=== PATIENT | male | born 1935 | race Caucasian/White ===

== ENCOUNTER → 2019-02-13 | Outpatient (CLI) | payer OTHER | LOC: ULTRA 10:47 | DX: R60.9 Edema, unspecified (principal); M79.605 Pain in left leg ==

== ENCOUNTER → 2019-12-03 | Outpatient (CLI) | payer OTHER | LOC: SJCVC 14:21 | PROVIDERS: ATTEND Internal Medicine Cardiovascular Disease | DX: I45.4 Nonspecific intraventricular block (principal); R94.31 Abnormal electrocardiogram [ECG] [EKG]; I25.119 Atherosclerotic heart disease of native coronary artery with unspecified angina pectoris; I48.92 Unspecified atrial flutter; I10 Essential (primary) hypertension; K21.9 Gastro-esophageal reflux disease without esophagitis; E78.00 Pure hypercholesterolemia, unspecified; Z82.49 Family history of ischemic heart disease and other diseases of the circulatory system; Z79.899 Other long term (current) drug therapy; Z87.891 Personal history of nicotine dependence ==

== ENCOUNTER → 2020-01-11 | Outpatient (CLI) | payer OTHER ==
[~2020-01-11] MED LIST: ALEVE220 MG PO; AMIODARONE HCL400 MG PO; ATIVAN1 M1 PO; CALCIUM CARBON500 MG PO; CLARITIN10 MG PO; ELIQUIS5 MG PO; FLOMAX0.4 MG PO; LIPITOR 40 MG T40 M1 PO; PRILOSEC OTC20 MG PO; REMERON15 M2 PO; SUPER THERAVIT1 EACH PO; VITAMIN D310 MC4 PO
== END ==
LOC: SJCVCIMAG 12:56
PROVIDERS: ATTEND Internal Medicine Cardiovascular Disease
DX: I44.7 Left bundle-branch block, unspecified (principal); I45.4 Nonspecific intraventricular block; R94.31 Abnormal electrocardiogram [ECG] [EKG]; I25.119 Atherosclerotic heart disease of native coronary artery with unspecified angina pectoris; I48.92 Unspecified atrial flutter; I10 Essential (primary) hypertension; R60.9 Edema, unspecified; J45.909 Unspecified asthma, uncomplicated; K21.9 Gastro-esophageal reflux disease without esophagitis; Z82.49 Family history of ischemic heart disease and other diseases of the circulatory system; Z79.899 Other long term (current) drug therapy; Z88.6 Allergy status to analgesic agent; Z87.891 Personal history of nicotine dependence

== ENCOUNTER → 2020-01-16 | Outpatient (CLI) | payer OTHER ==
[~2020-01-16] VITALS: Ht 175.3 cm; Wt 72.6 kg
[2020-01-16 09:00] VITALS: BP 131/74
[2020-01-16 09:11] LABS: HEMATOCRIT 38.9 % (42.0-52.0); HEMOGLOBIN 13.2 gm/dL (14.0-18.0); MCH 32.6 pg (26.0-34.0); MCV 95.6 fL (80.0-100.0); RBC 4.07 mil/uL (4.50-6.00); RDW 14.8 % (10.5-14.5); WBC 6.2 thou/uL (4.0-11.0)
[2020-01-16 09:21] LABS: CALCIUM 9.1 mg/dL (8.5-10.1); CREATININE 0.9 mg/dL (0.7-1.3); POTASSIUM 3.3 mmol/L (3.5-5.1)
--- NOTE | 2020-01-16 13:10 | CATHLAB ---
[facility] [place] [address] INVASIVE PROCEDURE REPORT Name: WILI RUIZ Room #: REG [facility].#: [id number] Admission: 01/16/20 Attend Phys: Ike Aleman MD Discharge: Date of : 35 Report #: [id number] THIS REPORT FOR: cc: Andre Schaeffer MD, Bernard O. MD Park, Jin S. MD ~ APPROVED REPORT Study performed: 01/16/2020 10:23:34 Patient Details Patient Status: Out-Patient Room #: The patient is a 84 year-old male Event Personnel Ike Aleman Human Resources Records Clerk, Samuel Desir RN RN, Sommer Hooks RTR, COOKIE MIXER HELPER Monitor, Maria Ines Boss Scrub, Radha Martinez RTR Scrub Procedures Performed Art Access - R femoral artery* Left Heart Cath w/or w/o Coronaries [id number] [facility] [id number] Initial Mod Sed Same Phys/QHP [facility] [id number] Mod Sed Same Phys/QHP Ea [id number] Hemostasis with Manual pressure Indication Positive stress test, Chest pain Risk Factors Hypercholesterolemia, Coronary Artery DiseaseHypertension Procedure Narrative The Right Groin^ was infiltrated with subcutaneous anesthesia. A PINNACLE 4FR Sheath #[id number] sheath was inserted into the RFA^. Coronary angiography was performed using coronary diagnostic catheters. The right coronary system was accessed and visualized with a JR4 catheter. The left coronary system was accessed and visualized with a JL4 catheter. The left ventricle was accessed and visualized with a JR4 catheter. Left ventricular/Aortic Valve gradient assessed via catheter pullback. Hemostasis was obtained with manual pressure following sheath removal without any complications. The patient tolerated the procedure well and there were no complications associated with the procedure. There was no hematoma. [facility] [address] [place] [address] INVASIVE PROCEDURE REPORT Name: RUIZWILI CHANG Room #: REG [facility]#: [id number] Admission: 01/16/20 Attend Phys: Ike Aleman MD Discharge: Date of : 35 Report #: [id number] Intraoperative Conscious Sedation Sedation start time: 10:45 Case end Time: 11:15 Fentanyl 100 mcg Versed 2 mg Fluoro Time: 1.40 minutes Dose: DAP 2453.40 cGycm2 343 mGy Contrast Type and Amount: Omnipaque 40 ml Coronary Angiography The patient's coronary anatomy is right dominant. Diagnostic Cath Left Main The left main artery is a large-caliber vessel, appears angiographically normal. LAD The LAD is a moderate-sized caliber vessel, traverses the anterior wall and terminates at the apex. There is a stent in the midsegment, patent with mild restenosis. Diagonal 1 This is a small caliber vessel, with no flow-limiting lesions. Diagonal 2 This is a small caliber vessel, with no flow-limiting lesions. Circumflex The left circumflex artery is a moderate-sized caliber vessel, patent with no flow-limiting lesions. OM1 This is a moderate-sized caliber vessel, patent with no flow-limiting lesions. OM2 This is a moderate-sized caliber vessel, patent with no flow-limiting lesions. Right Coronary The RCA is a dominant vessel with mild disease in the mid and distal segments, 30%. R PDA This is a small to moderate-sized caliber vessel, patent with no flow-limiting lesions. RPLV This is a small to moderate-sized caliber vessel, patent with no flow-limiting lesions. Left Ventriculography Left Ventriculography was not performed. Ejection Fraction was 60% based off patient's Nuclear Cardiac Stress Test. An LVEDP was measured and there is no gradient across the outflow tract. Hemodynamics The aortic pressure is 157/81 mmHg with a mean of 119 mmHg. The left ventricular pressure is 155/17 mmHg with a mean of mmHg. The left ventricular end diastolic pressure is 27 mmHg. [facility] [address] [place] [address] INVASIVE PROCEDURE REPORT Name: JOSEPHWILI CHARLENE Room #: REG [facility]#: [id number] Admission: 01/16/20 Attend Phys: Ike Aleman MD Discharge: Date of : 35 Report #: [id number] Conclusion 1. There is a patent stent in the LAD with mild restenosis. 2. Mild disease in the RCA. 3. Normal LV systolic function. 4. Recommend aggressive risk factor management. <ELECTRONICALLY SIGNED> By: Ike Aleman MD 01/16/201309 09 09 Ike Aleman MD /INF
--- NOTE | 2020-01-16 15:37 | EKG ---
[facility] [place] [address] ELECTROCARDIOGRAM REPORT Name: WILI RUIZ CHARLENE [id number] Admission: 01/16/20 Attend Phys: Ike Aleman MD Discharge: Date of : 35 Report #: [id number] THIS REPORT FOR: cc: Andre Schaeffer MD, Bernard O. MD Couchonnal, Luis F. 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: [facility] : 1935 Requested By: Ike Aleman Order Number: [id number] : Beni Hardy Measurements Intervals [place] Rate: 66 P: 7 SC: 214 QRS: -64 QRSD: 153 T: 84 QT: 473 QTc: 496 Interpretive Statements Sinus rhythm Borderline prolonged SC interval Left bundle branch block Compared to ECG 01/27/2006 12:15:45 Left bundle-branch block now present T-wave abnormality no longer present Electronically Signed On 01-16-2020 15:37:39 CDT by Beni Hardy [email or web address] <ELECTRONICALLY SIGNED> By: Beni Hardy MD 01/16/20 1537 9 09 Beni Hardy MD /EPI
== END | disposition home or self-care (01) ==
LOC: CATH 07:57
PROVIDERS: ATTEND Internal Medicine Cardiovascular Disease
DX: R07.9 Chest pain, unspecified (principal); R94.39 Abnormal result of other cardiovascular function study; I25.10 Atherosclerotic heart disease of native coronary artery without angina pectoris; T82.855A Stenosis of coronary artery stent, initial encounter; M19.90 Unspecified osteoarthritis, unspecified site; M10.9 Gout, unspecified; K21.9 Gastro-esophageal reflux disease without esophagitis; I10 Essential (primary) hypertension; E78.00 Pure hypercholesterolemia, unspecified; Z98.890 Other specified postprocedural states; Z79.899 Other long term (current) drug therapy; Z79.01 Long term (current) use of anticoagulants

== ENCOUNTER → 2020-01-31 | Outpatient (CLI) | payer OTHER | LOC: RAD 11:06 | PROVIDERS: ATTEND Internal Medicine Cardiovascular Disease | DX: Z79.899 Other long term (current) drug therapy (principal) ==

== ENCOUNTER → 2020-01-31 | Outpatient (CLI) | payer OTHER | LOC: SJCVC 10:36 | PROVIDERS: ATTEND Internal Medicine Cardiovascular Disease | DX: R94.31 Abnormal electrocardiogram [ECG] [EKG] (principal); I44.7 Left bundle-branch block, unspecified; I25.119 Atherosclerotic heart disease of native coronary artery with unspecified angina pectoris; I48.92 Unspecified atrial flutter; I10 Essential (primary) hypertension; Z79.899 Other long term (current) drug therapy; Z87.891 Personal history of nicotine dependence ==

== ENCOUNTER → 2020-09-25 | Outpatient (CLI) | payer OTHER | LOC: SJCVC 13:38 | PROVIDERS: ATTEND Internal Medicine Cardiovascular Disease | DX: R94.31 Abnormal electrocardiogram [ECG] [EKG] (principal); I45.4 Nonspecific intraventricular block; I25.119 Atherosclerotic heart disease of native coronary artery with unspecified angina pectoris; I48.92 Unspecified atrial flutter; I10 Essential (primary) hypertension; R60.9 Edema, unspecified; D64.9 Anemia, unspecified; J45.909 Unspecified asthma, uncomplicated; K21.9 Gastro-esophageal reflux disease without esophagitis; Z79.899 Other long term (current) drug therapy; Z85.72 Personal history of non-Hodgkin lymphomas; Z87.891 Personal history of nicotine dependence ==

== ENCOUNTER → 2021-04-07 | Outpatient (CLI) | payer OTHER | LOC: SJCVC 14:07 | PROVIDERS: ATTEND Internal Medicine Cardiovascular Disease | DX: I45.4 Nonspecific intraventricular block (principal); R94.31 Abnormal electrocardiogram [ECG] [EKG]; I25.119 Atherosclerotic heart disease of native coronary artery with unspecified angina pectoris; I48.92 Unspecified atrial flutter; I10 Essential (primary) hypertension; R60.9 Edema, unspecified; J45.909 Unspecified asthma, uncomplicated; K21.9 Gastro-esophageal reflux disease without esophagitis; E78.00 Pure hypercholesterolemia, unspecified; Z88.8 Allergy status to other drugs, medicaments and biological substances; Z79.899 Other long term (current) drug therapy; Z87.891 Personal history of nicotine dependence; Z72.89 Other problems related to lifestyle; Z95.818 Presence of other cardiac implants and grafts ==

== ENCOUNTER → 2021-06-12 | Outpatient (CLI) | payer OTHER | LOC: SJCVC 14:41 | PROVIDERS: ATTEND Internal Medicine Cardiovascular Disease | DX: R94.31 Abnormal electrocardiogram [ECG] [EKG] (principal); I44.7 Left bundle-branch block, unspecified; I25.119 Atherosclerotic heart disease of native coronary artery with unspecified angina pectoris; I48.92 Unspecified atrial flutter; I10 Essential (primary) hypertension; R00.2 Palpitations; R06.9 Unspecified abnormalities of breathing; D64.9 Anemia, unspecified; J45.909 Unspecified asthma, uncomplicated; K21.9 Gastro-esophageal reflux disease without esophagitis; K22.70 Barrett's esophagus without dysplasia; E78.00 Pure hypercholesterolemia, unspecified; I25.10 Atherosclerotic heart disease of native coronary artery without angina pectoris; I48.0 Paroxysmal atrial fibrillation; Z87.890 Personal history of sex reassignment; Z72.89 Other problems related to lifestyle ==

== ENCOUNTER → 2021-07-16 | Outpatient (CLI) | payer OTHER | LOC: SJCVCIMAG 07-06 06:50 | PROVIDERS: ATTEND Internal Medicine Cardiovascular Disease | DX: R94.31 Abnormal electrocardiogram [ECG] [EKG] (principal); I45.4 Nonspecific intraventricular block; I08.0 Rheumatic disorders of both mitral and aortic valves; I48.92 Unspecified atrial flutter; I25.119 Atherosclerotic heart disease of native coronary artery with unspecified angina pectoris; I10 Essential (primary) hypertension; R60.9 Edema, unspecified; D64.9 Anemia, unspecified; J45.909 Unspecified asthma, uncomplicated; K22.70 Barrett's esophagus without dysplasia; I25.10 Atherosclerotic heart disease of native coronary artery without angina pectoris; C83.30 Diffuse large B-cell lymphoma, unspecified site; K21.9 Gastro-esophageal reflux disease without esophagitis; E78.5 Hyperlipidemia, unspecified; E78.00 Pure hypercholesterolemia, unspecified; I47.1 Supraventricular tachycardia; Z87.891 Personal history of nicotine dependence; Z72.89 Other problems related to lifestyle; Z79.899 Other long term (current) drug therapy; Z88.8 Allergy status to other drugs, medicaments and biological substances ==